=== PATIENT | male | born 1960 | race Caucasian/White ===

== ENCOUNTER → 2016-10-27 | Outpatient (CLI) | payer OTHER ==
[~2016-10-27] MED LIST: ATV5 PO; LRT5 PO; PRLSR20 PO
--- NOTE | 2016-10-28 07:18 | PAP/PSG TECHNICIAN REPORT ---
[facility] Community Fundraiser Polysomnogram Report Study name: None Report date: 10/28/2016 Study date: 10/27/2016 Referring Physician: Gautam Pearce M.D. Name: KYM SHEA Interpreting Physician: Arlet Pearce M.D. Date of : 1960 Community Fundraiser: Stacey Reyna, PSGT. Sex: Male Age: 56 StudyType: PSG Weight: 226 lbs Height: 56 years, Height 5' 10" Neck Circum: BMI: 32.42 Medications: BUSPAR 10 MG, LIPITOR 10 MG, PRILISEC 20 MG, CELEXA 20 MG. Patient History 55 YR. OLD MALE IN ROOM 7, PRESENTS TONIGHT FOR A DIAGNOSTIC TITRATION FOLLOW UP TO GET CORRECT NUMBERS SINCE HE HAS BEEN READING A AHI OF 26. Parameters Monitored NPSG: E1-M2, E2-M1, Fp1-M2, Fp2-M1, F3-M2, F4-M2, F4-M1, C3-M2, C4-M2, C4-M1, O1-M2, O2-M2, O2-M1, T3-M2, T4-M1, P3-M2, P4-M1, CHIN1, CHIN2, HR, EKG, Legs, PFLOW, SNOR, FLOW, CFLOW, Tidal Volume, THOR, ABDO, SpO2, PLTH, CPRESS, ETCO2 Wave, ETCO2, pH Sleep Architecture Sleep Stages Time at Lights Off 10:18:42 PM STAGES Time (min.) TST (%) Time at Lights On 4:59:42 AM Wake 233.0 -- Total Recording Time (TRT) 402.50 min. N1 17.5 10 Total Sleep Period (TSP) 280.0 min. N2 123.5 74 Total Sleep Time (TST) 168.0min. N3 0.0 0 Awake Time 234.5 min. REM 27.0 16 Wake after Sleep Onset 124.0 min. Sleep Efficiency (SE) 42 % Sleep Onset Latency (NANCY) 109.0 min. Number of Stage 1 Shifts None Awakenings 10 Stage Changes 31 Number of REM periods 2 REM 27.0 16 REM Latency 96.5 min. NREM 141.0 84 Body Position Analysis Supine Right Left Side Prone Vertical Total Sleep Time (min.) 1.7 136.6 31.4 168.00 0.0 0.0 Total Sleep Time (%) 0% 81% 19% 100 0% N/A% Total Sleep Time REM (min.) 0.0 27.0 0.0 None 0.0 0.0 Total Sleep Time NREM (min.) 0.0 109.6 31.4 None 0.0 0.0 Intermittent Wake (min.) 1.7 147.0 84.2 None 0.0 0.0 Total Sleep Period (%) 0% None None None None None Arousals Myoclonus (PLM) * Events Count Index Events Count Index Spontaneous 14 5 Events Awake (PLMW) 0 0.0 Respiratory 4 1.4 Events Asleep w/ Arousal (PLMA) 1 0.4 PLM 1 0 Events Asleep w/o Arousal (PLMS) 26 9.3 Snoring 0 0 Total Asleep 27 9.6 Total 19 7 Total 27 4 Respiratory Analysis * CA OA MA CH H RERA Total Count 18 1 1 0 16 0 36 Index 6.4 0.4 0.4 0 5.7 0 12.9 Mean Duration 12.9 24.1 5.2 0.00 17.1 0.0 14.9 Longest Duration 21.7 24.1 5.2 0.00 5.2 0.0 33.2 Respiratory Event Summary Total Supine ~Supine Right Left Prone REM NREM Apneas Count 20 N/A 20 14 6 N/A 0 20 Index 7.1 N/A 7 6.1 11.5 N/A 0 9 Hypopneas (4% Desat) Count 16 N/A 16 8 8 N/A 1 15 Index 5.7 N/A 6 3.5 15.3 N/A 2.2 6.4 Apneas & All Hypopneas Count 36 N/A 36 22 14 N/A 1 35 Index 12.9 N/A 13 10 27 N/A 2.2 14.9 Respiratory Events ([employer]+All Hyp+RERA) Count 36 N/A 36 22 14 N/A 1 35 Index 12.9 N/A 13 9.7 26.7 N/A 2.2 14.9 Respiratory Related Arousal Count 4 N/A 4 2 2 N/A 0 4 Index 1.4 N/A 1 1 4 N/A 0 2 Snoring Analysis Supine Right Left Prone REM NREM Total Snore duration 0.0 min Snores count N/A 0 0 N/A 0 0 0 Snore mean duration 0.0 Sec Snores index N/A 0 0 N/A 0.0 0.0 0.0 TST with snoring (%) 0.0% Desaturation Event Summary: Minimum %SpO2 Event Count Mean/Min/Max Duration(sec.) Desaturation Index % Time In Bed > 90 19 24.1 / 9.0 / 46.3 3.8 75.4 86 - 90 21 18.0 / 9.0 / 29.0 22.7 14.1 81 - 85 18 15.7 / 11.0 / 21.8 62.5 4.4 76 - 80 6 13.1 / 11.0 / 15.3 36.9 2.5 71 - 75 0 N/A 0.0 2.2 66 - 70 0 N/A 0.0 1.3 61 - 65 0 N/A 0.0 0.2 56 - 60 0 N/A 0.0 0.0 51 - 55 0 N/A 0.0 0.0 < 50 0 N/A 0.0 0.0 Total REM NREM Awake <50% 0.0 min. 0.0 min. 0.0 min. 0.0 min. 51 - 60% 0.0 min. 0.0 min. 0.0 min. 0.0 min. 61 - 70% 5.7 min. 0.0 min. 0.0 min. 5.6 min. 71 - 80% 18.6 min. 0.0 min. 5.3 min. 13.3 min. 81 - 90% 72.7 min. 0.7 min. 38.2 min. 33.9 min. 91 - 100% 297.7 min. 26.3 min. 97.5 min. 173.9 min. Average 91 93 91 92 Minimum SpO2 63 89 70 63 Desaturation Event Index 6.9 4.4 18.7 0.0 # Desat. Events below 89% 38 N/A 38 N/A Time(%) with Saturation below 89% 18.4 0.0 8.5 9.9 Time(min.) with Saturation below 89% 72.6 0.0 33.4 39.2 Time (mins) REM (mins) NREM (mins) % of TST SpO2 Below 90% 44 1 N43 22.7 SpO2 Below 88% 11 0 0 14 Heart Rate Analysis Min (bpm) Max (bpm) Average (bpm) Awake 40 82 53 NREM 43 67 49 REM 44 68 55 Overall 43 68 50 Supplemental O2 Values Minimum O2 level: None Value Start Time End Time Community Fundraiser Comments Bi-Level Study: slept in the right, left, and supine positions. No cardiac arrhythmia or PLM's noted. No bruxism noted. PAP initiated at an IPAP of +4 CMH2O and an EPAP of +8 CMH2O up-titrated to an optimal level of: IPAP +16 CMH2O, EPAP + 10 CMH20 with a rate of 12 BPM, which nearly eliminated all respiratory events and snoring. A Small Res Med Airfit F10, was used during titration awoke to use the restroom one time during the night. stated, I did not sleep as well as I do when I am in my own bed". The final report will be interpreted and signed by a sleep physician. The completed physician report will then be placed in the patient medical record. Pt. had periods of wakefulness.He wasn't able to tolerate the Bi-Pap presure of that was ordered.Pressure was lowered and increased as needed throughout the night.Pt. seemed to tolerate the mask well. Therapy Event: Therapy (cm H20) 0 12 1425/05 Total Time at Pressure (min.) 2.2 39.8 62.1 53.3 165.0 78.5 TST at Pressure (min.) 0.0 11.6 27.6 47.8 81.0 0.0 # Periods 1 1 1 1 1 1 Sleep Onset (min.) N/A 28.3 0.0 0.0 0.0 N/A REM Onset (min.) N/A N/A N/A 22.8 83.0 N/A Sleep Efficiency % 0 29 44 89 49 0 Wakefulness (%) 100.0 71.0 55.5 10.3 50.9 100.0 Wakefulness (min.) 2.2 28.3 34.5 5.5 84.0 78.5 NREM 1 (%) 0.0 2.5 7.2 8.4 4.5 0.0 NREM 1 (min.) 0.0 1.0 4.5 4.5 7.5 0.0 NREM 2 (%) 0.0 26.5 37.2 61.5 34.6 0.0 NREM 2 (min.) 0.0 10.6 23.1 32.8 57.0 0.0 NREM 3 (%) 0.0 0.0 0.0 0.0 0.0 0.0 NREM 3 (min.) 0.0 0.0 0.0 0.0 0.0 0.0 REM (%) 0.0 0.0 0.0 19.7 10.0 0.0 REM (min.) 0.0 0.0 0.0 10.5 16.5 0.0 # Arousals N/A 1 4 6 8 N/A Arousal Index N/A 5.2 8.7 7.5 5.9 N/A # Snore N/A 0 0 0 0 N/A Snore Index N/A 0.0 0.0 0.0 0.0 N/A AHI N/A 88.3 19.5 7.5 3.0 N/A AHI Supine N/A N/A N/A N/A N/A N/A AHI Non-Supine N/A 88.3 19.5 7.5 3.0 N/A NREM AHI N/A 88.3 19.5 8.0 3.7 N/A REM AHI N/A N/A N/A 5.7 0.0 N/A RDI N/A 88.3 19.5 7.5 3.0 N/A # Obstructive N/A 0 1 0 0 N/A # Central Ap N/A 16 2 0 0 N/A # Mixed N/A 1 0 0 0 N/A # Hypopneas N/A 0 6 6 4 N/A RERAS N/A 0 0 0 0 N/A Total Respiratory Events N/A 17 9 6 4 N/A Time Below SpO2 89.00% (min.) 0.0 11.6 20.4 1.1 0.3 0.0 Mean NREM SpO2 (%) N/A 81 88 92 93 N/A Mean REM SpO2 (%) N/A N/A N/A 92 93 N/A Mean Sleep SpO2 (%) N/A 81 88 92 93 N/A Min NREM SpO2 (%) N/A 70 79 86 88 N/A Min REM SpO2 (%) N/A N/A N/A 89 91 N/A Position Supine (min.) 0.0 0.0 0.0 0.0 0.0 0.0 Position Non-supine (min.) 0.0 11.6 27.6 47.8 81.0 0.0 LM Index Sleep N/A 0.0 0.0 11.3 13.3 N/A LM Index NREM N/A 0.0 0.0 3.2 10.2 N/A LM Index REM N/A N/A N/A 40.0 25.5 N/A Mean Heart Rate (bpm) N/A 49 50 51 50 N/A Min Heart Rate (bpm) N/A 47 45 44 43 N/A
--- NOTE | 2016-11-05 08:16 | POLYSOMNOGRAPH REPORT ---
CPAP TITRATION STUDY/BIPAP TITRATION STUDY REFERRING PERSON: Dr. Lida Pearce. PORTFOLIO LEAD: Yolanda Reyna. Mr. Becker is a 55-year-old male sent for a titration study. His AHI has been high on therapy at home. [place] sleepiness scale score on the evening of this study is not recorded. BMI is 32.42. Following the technical and digital specifications of the [place] [employer] (AASM) a standard diagnostic polysomnogram was performed monitoring EEG, EOG, EMG (chin and leg deviations), oxygen saturation, body position, digital video, respiratory effort and airflow. The sleep Stage and event scoring was based on the AASM Manual for the Scoring of Sleep and Associated Events 2007 edition. Apneas are defined as a drop in the peak thermal sensor excursion by >90% of baseline for at least 10 seconds. Hypopneas were scored using the 4% oxygen desaturation rule (4A-[employer]) and a decrease in the nasal pressure excursions by >30% of baseline for at least 10 seconds. Respiratory effort-related arousal (RERA's) is defined as a sequence of breaths lasting at least 10 seconds characterized by increasing respiratory effort or flattening of the nasal pressure waveform leading to an arousal from sleep when the sequence of breaths does not meet criteria for an apnea or hypopnea. Apnea Hypopnea index (AHI) is defined as the number of apneas and hypopneas occurring in an hour of sleep. Respiratory disturbance index (RDI) is defined as the number of apneas, hypopneas, and RERA's occurring in an hour of sleep. Mr. Yaneli Bateman total sleep period time was 280 minutes. Total sleep time was only 168 minutes. Sleep efficiency was 42%. Latency to sleep onset was 109 minutes with wake after sleep onset of 124 minutes. Total non-REM sleep time was 141 minutes. He spent 10% of that time in N1 sleep and 74% in N2 sleep. There was no N3 sleep on this test. This is abnormal non-REM sleep architecture. REM latency was 96.5 minutes with a total REM sleep time of 27 minutes or 16% of total sleep time. There were 19 cortical arousals from sleep. 14 of these arousals were spontaneous, 4 were due to respiratory events, and 1 was due to periodic limb movements. There were 27 periodic limb movements. Limb movement index was 9.6. Limb movement with arousal index was 0.4. During this titration study, there were 18 central apneas, 1 obstructive apnea and 1 mixed apnea. There were 16 hypopnea and no RERA. Apnea-hypopnea index was 12.9. Mean saturation during sleep was 91% with desaturations less than 89% for 72.6 minutes of recording time. There was no cardiac ectopy. During sleep, heart rates ranged from a low of 43 beats per minute to a high of 68 beats per minute. As stated above, this was a CPAP or BiPAP titration study. He chose a small ResMed AirFit F10 for his titration. The titration was begun on BIPAP at inspiratory pressure of 8 and an expiratory pressure of 4. He was titrated until approximately 1:15 a.m. on standard BiPAP therapy, but due to central apneas at that time a backup rate was added. When his backup rate was added, central apneas no longer persisted. On a pressure of 16/10 and a backup rate of 12 this patient was observed for 81 minutes of sleep time. 16.5 of those minutes was spent in REM sleep. However, no supine REM sleep was noted on this study. AHI and RDI on this pressure were both 3 and saturations were less than 89 for only 0.3 minutes of recorded time. IMPRESSION AND PLAN: Successful BiPAP titration study in this patient who appears to have an element of complex sleep apnea syndrome. This is eliminated with BiPAP therapy with a backup rate. He seems to do well on 16/10 with a backup rate of 12. I would recommend that this be started in the outpatient setting and a download from his machine reviewed in 1 month both to check compliance as well as AHI.
== END | disposition home or self-care (01) ==
LOC: C.NEUR 21:00
PROVIDERS: ATTEND Family Medicine
DX: G47.33 Obstructive sleep apnea (adult) (pediatric) (principal)